=== PATIENT | male | born 1995 | race Caucasian/White ===

== ENCOUNTER 2020-12-14 11:37 | Emergency (ER) | payer OTHER ==
[2020-12-14 11:43] VITALS: TEMP 97.8; BMI 28.8
[2020-12-14 13:00] LABS: BASO % 1.4 % (0-2.0); EOS % 0.9 % (0-4.5); HEMATOCRIT 48.1 % (35.4-49); HEMOGLOBIN 16.4 GM/dl (11.7-16.9); LYMPH % 21.5 % (8-40); MCHC 34.1 g/dl (32.0-35.9); MEAN CELL VOLUME 87.8 fl (80-96); MEAN PLT VOLUME 8.4 fl (7.5-11.1); MONO % 8.2 % (3.8-10.2); PLATELET COUNT 208 K/MM3 (134-434); RBC 5.48 M/mm3 (4.00-5.60); RDW 11.6 % (11.9-15.9); WHITE BLOOD COUNT 6.4 K/mm3 (4.0-10.8)
[2020-12-14 13:30] LABS: ALBUMIN 4.8 g/dl (3.4-5.0); BILIRUBIN,TOTAL 1.2 mg/dl (0.2-1); CALCIUM 9.7 mg/dl (8.5-10); POTASSIUM 4.4 mmol/L (3.5-5.1); TOT PROT 7.2 g/dl (6.4-8.2)
[2020-12-14 16:37] VITALS: BP 136/75; PULSE 86
== END 2020-12-14 16:41 | disposition home or self-care (01) ==
LOC: FER 11:37
DX: R06.00 Dyspnea, unspecified (principal); R74.8 Abnormal levels of other serum enzymes
CPT/HCPCS: 36415; 71046-TC-FY; 80053; 82550; 84484; 85025; 85379; 93005; 93970-TC; 99284-25